=== PATIENT | female | born 1960 | race Two or more races ===

== ENCOUNTER 2020-07-07 12:47 | Emergency (ER) | payer OTHER ==
[~2020-07-07] VITALS: Ht 152.4 cm; Wt 65.0 kg
[2020-07-07] MEDS ORDERED: AMLODIPINE 5MG TABLET PO ONE (15:45)
[2020-07-07 16:17] LABS: BASOPHILS % 0.9 % (0.0-2.0); EOSINOPHILS % 1.1 % (0.0-5.0); HEMATOCRIT. 38.1 % (36.0-48.0); HEMOGLOBIN. 13.3 g/dL (12.0-16.0); LYMPHOCYTES % 33.1 % (20.0-50.0); MEAN CORPUSCULAR HEMOGLOBIN 31.5 pg (28.0-32.0); MEAN CORPUSCULAR VOLUME 90.5 fL (81.0-99.0); MEAN PLATELET VOLUME 8.2 fl (7.4-10.4); MONOCYTES % 5.4 % (2.0-8.0); NEUTROPHILS % 59.5 % (40.0-76.0); PLATELET 279 x1000/uL (130-400); RED BLOOD CELL COUNT 4.21 mill/uL (4.2-5.4); RED CELL DISTRIBUTION WIDTH 13.2 % (11.6-14.6)
[2020-07-07 16:19] LABS: CHLORIDE 110 mEq/L (98-107)
[2020-07-07 16:21] LABS: PROTHROMBIN TIME 10.8 sec (9.6-11.0)
[2020-07-07 17:42] VITALS: BP 169/55
== END 2020-07-07 17:43 | disposition home or self-care (01) ==
LOC: ER 12:47
DX: I16.0 Hypertensive urgency (principal); R51.9 Headache, unspecified; E11.9 Type 2 diabetes mellitus without complications
CPT/HCPCS: 36415; 80048; 85025; 93005; 99285